=== PATIENT | female | born 1985 | race American Indian/Alaskan Native ===

== ENCOUNTER 2019-11-06 19:47 | Emergency (ER) | payer OTHER ==
--- NOTE | 2019-11-06 20:23 | Event Note ---
ED Screening Note ED Screening Note: SOB, lightheadedness, fatigue that began three days ago hx of anemia, never had transfusion no n/v/d no cough no fever no CP conjunctiva is very pale hx of heavy menstrual cycle, currently on cycle hypotensive, improved upon repeat This initial assessment/diagnostic orders/clinical plan/treatment(s) is/are subject to change based on patients health status, clinical progression and re- assessment by fellow clinical providers in the ED. Further treatment and workup at subsequent clinical providers discretion. Patient/guardian urged not to elope from the ED as their condition may be serious if not clinically assessed and managed. Initial orders include: labs 8:22 PM spoke with Yahir, charge nurse advised pts blood pressure and paleness, states she is looking for a room
[2019-11-06] MEDS ORDERED: MECLIZINE 25 MG TAB PO ONE (20:36)
[2019-11-06] MEDS ORDERED: SODIUM CHLORIDE 0.9% 1000 ML 1,000 ML IV ONE (20:36)
--- NOTE | 2019-11-06 20:38 | Emergency Department Report ---
HPI - General Chief Complaint: Dizziness Time Seen by Provider: 11/06/19 20:19 - HPI HPI: This is a 34-year-old female presents to the emergency department with a 3 to 4- day history of some shortness of breath and dizziness/vertigo. Patient says that the dizziness is both the sensation that the room is spinning, as well as feeling like she might pass out. She denies any headache, vision change, numbness or paresthesias or any other neurological deficits. The shortness of breath worsens when the patient is trying to sleep. She denies any fever, chest pain, cough, wheezing, back pain, lower extremity swelling. She has not taken anything for symptoms prior to presentation. She has a history of anemia for which she takes iron pills. She denies any tobacco or illicit drug use. No recent travel or sick contacts at home. No known exposure to anyone with Covid 19. ED Past Medical Hx - Past Medical History Previous Medical History?: Yes Additional medical history: Anemia - Surgical History Past Surgical History?: Yes Hx Cholecystectomy: Yes - Social History Smoking Status: Never Smoker Substance Use Type: None - Medications Home Medications: Home Medications Medication Instructions Recorded Confirmed Last Taken Type Ferrous Sulfate [Feosol] 325 mg PO QDAY #30 tablet 11/07/19 Unknown Rx Meclizine [Antivert] 25 mg PO TID PRN #15 tablet 11/07/19 Unknown Rx ED Review of Systems ROS: Stated complaint: SOB,DIZZY Other details as noted in HPI Comment: All other systems reviewed and negative Constitutional: denies: chills, fever Eyes: denies: eye pain, vision change ENT: denies: ear pain, throat pain Respiratory: shortness of breath. denies: cough, wheezing Cardiovascular: denies: chest pain, palpitations Gastrointestinal: denies: abdominal pain, vomiting Genitourinary: denies: dysuria, discharge Musculoskeletal: denies: back pain, arthralgia Skin: denies: rash, lesions Neurological: vertigo, other (dizziness). denies: headache Physical Exam - Physical Exam Vital Signs: Vital Signs 11/06/19 20:09 Temperature 98.6 F Pulse Rate 90 Respiratory 18 Rate Blood Pressure 88/50 O2 Sat by Pulse 100 Oximetry Physical Exam: GENERAL: The patient is well-developed well-nourished. HENT: Normocephalic. Atraumatic. Patient has moist mucous membranes. EYES: Extraocular motions are intact. No nystagmus. NECK: Supple. Trachea is midline. CHEST/LUNGS: Clear to auscultation. No tachypnea or accessory muscle use. There is no respiratory distress noted. HEART/CARDIOVASCULAR: Regular. There is no tachycardia. There is no murmur. ABDOMEN: Abdomen is soft, nontender. Patient has normal bowel sounds. SKIN: Skin is warm and dry. NEURO: The patient is awake, alert, and oriented. The patient is cooperative. The patient has no focal neurologic deficits. Normal speech. Cranial nerves II through XII grossly intact. No pronator drift. No dysmetria. MUSCULOSKELETAL: There is no tenderness or deformity. There is no limitation range of motion. There is no evidence of acute injury. ED Course Vital Signs 11/06/19 20:09 Temperature 98.6 F Pulse Rate 90 Respiratory 18 Rate Blood Pressure 88/50 O2 Sat by Pulse 100 Oximetry ED Medical Decision Making - Lab Data Result diagrams: 11/06/19 20:27 11/06/19 20:27 - EKG Data -: EKG Interpreted by Me EKG shows normal: sinus rhythm, axis, intervals, QRS complexes, ST-T waves Rate: normal - EKG Data When compared to previous EKG there are: previous EKG unavailable Interpretation: normal EKG - Radiology Data Radiology results: report reviewed, image reviewed interpreted by me: Chest x-ray does not show any acute process. There are no pleural effusions, obvious pneumonia and there is no pneumothorax. CTA CHEST WITH IV CONTRAST INDICATION: Shortness of breath. TECHNIQUE: Axial CT images were obtained through the chest after injection of 100 cc Omnipaque 350 IV contrast. 3 plane MIP reconstructions were produced. All CT scans at this location are performed using CT dose reduction for ALARA by means of automated exposure control. COMPARISON: None available. FINDINGS: PULMONARY ARTERIES: No pulmonary emboli. THORACIC AORTA: No acute abnormality. HEART: Normal. CORONARY ARTERIES: No significant calcification. PLEURA: No pleural effusion. No pneumothorax. LYMPH NODES: No significant adenopathy. LUNGS: The right upper lobe subpleural nodular parenchymal densities measuring 1.7 and 1.4 cm on series 2 image 24 and 33. ADDITIONAL FINDINGS: None. UPPER ABDOMEN: Indeterminate hypodense cystic lesion within the spleen measuring 2.9 cm. Pneumobilia. SKELETAL STRUCTURES: No significant osseous abnormality. IMPRESSION: 1. No CT evidence for pulmonary embolism. 2. 2 right upper lobe pleural-based small nodular opacities. Favor infection/inflammation versus less likely neoplasm given patient's young age. Short-term follow-up CT is recommended in 3 months to confirm resolution 3 indeterminate splenic lesion likely represents pseudocyst. - Medical Decision Making This patient presents to the emergency department with a complaint of some dizziness/vertigo and shortness of breath. On examination she does not have any focal, motor or sensory deficits and her cranial nerves are intact. Heart and lung sounds are normal to auscultation and the patient does not appear in any respiratory or acute distress. A chest x-ray was done that does not show any acute process. EKG did not show any signs of ST elevation NV or any significant dysrhythmia. Patient's labs show anemia with a hemoglobin of 8 and an elevated d-dimer level. Patient has a history of anemia and has been out of her iron supplement. Secondary to the elevated d-dimer level, the patient had a CT angiography of the chest that did not show any evidence for pulmonary embolism. However, incidentally, the patient was found to have 2 right upper lobe pleural-based nodules. I discussed this with the patient so that he can be followed by her primary care physician as she will need a follow-up scan or some type of imaging study in about 3 months. Patient was given 2 L of IV fluid resuscitation and a dose of Antivert. She was reevaluated multiple times over multiple hours and says she is feeling greatly improved. The dizziness and shortness of breath have both resolved. The patient was seen ambulatory throughout the emergency department and both appears and feels stable. For all these reasons patient appears safe for discharge home at this time. She has been given a prescription for Antivert and instructed to follow-up with her PCP. She will return to the ER with any worsening of her symptoms or any acute distress. Critical Care Time: No Critical care attestation.: If time is entered above; I have spent that time in minutes in the direct care of this critically ill patient, excluding procedure time. ED Disposition Clinical Impression: Vertigo, Shortness of breath, Pulmonary nodules Anemia Qualifiers: Anemia type: unspecified type Qualified Code(s): D64.9 - Anemia, unspecified Disposition: DC- TO HOME OR SELFCARE Is pt being admited?: No Condition: Stable Instructions: Vertigo (ED), Dyspnea (ED), Dizziness (ED), Pulmonary Nodules (ED) Additional Instructions: Please follow-up with your primary care physician in the next few days. Return to the emergency department with any worsening of your symptoms or any acute distress. I am setting you up for a lower extremity venous Doppler ultrasound to evaluate the bumps/lumps felt on your legs. If positive for blood clots, you will be redirected to the emergency department. If negative, proceed with outpatient follow-up with your primary care physician. Prescriptions: Meclizine [Antivert] 25 mg PO TID PRN #15 tablet PRN Reason: Vertigo Ferrous Sulfate [Feosol] 325 mg PO QDAY #30 tablet Referrals: PCP, Your [Other] - 2-3 Days Time of Disposition: 02:16
[2019-11-06 20:51] LABS: Basophils % (Auto) 0.2 % (0.0-1.8); Eosinophils % (Auto) 0.6 % (0.0-4.3); Hematocrit 26.7 % (30.3-42.9); Lymphocytes # (Auto) 1.1 K/mm3 (1.2-5.4); Lymphocytes % (Auto) 19.8 % (13.4-35.0); Mean Corpuscular HGB Conc 30 % (30-34); Mean Corpuscular Volume 67 fl (79-97); Monocytes # (Auto) 0.8 K/mm3 (0.0-0.8); Monocytes % (Auto) 14.4 % (0.0-7.3); Platelet Count 446 K/mm3 (140-440); Red Blood Count 4.01 M/mm3 (3.65-5.03); Red Cell Distribution Width 19.2 % (13.2-15.2)
[2019-11-06 21:07] LABS: INR 1.03 (0.87-1.13)
[2019-11-06 21:26] LABS: Alanine Aminotransferase 8 units/L (7-56); Albumin 3.8 g/dL (3.9-5); BUN/Creatinine Ratio 12; Blood Urea Nitrogen 7 mg/dL (7-17); Calcium 9.5 mg/dL (8.4-10.2); Hemolysis Index 0
--- NOTE | 2019-11-06 22:03 | XRay Report ---
CHEST 2 VIEWS INDICATION / CLINICAL INFORMATION: SOB. COMPARISON: Prior chest radiograph 12/12/2009 FINDINGS: SUPPORT DEVICES: None. HEART / MEDIASTINUM: No significant abnormality. LUNGS / PLEURA: No significant pulmonary or pleural abnormality. No pneumothorax. ADDITIONAL FINDINGS: No significant additional findings. IMPRESSION: 1. No acute findings. No interval change Signer Name: Leana Allen MD Signed: 11/06/2019 9:58 PM Workstation Name: [id number]
[2019-11-07] MEDS ORDERED: SODIUM CHLORIDE 0.9% 1000 ML 1,000 ML IV ONE (00:03)
--- NOTE | 2019-11-07 00:51 | Cat Scan Report ---
CTA CHEST WITH IV CONTRAST INDICATION: Shortness of breath. TECHNIQUE: Axial CT images were obtained through the chest after injection of 100 cc Omnipaque 350 IV contrast. 3 plane MIP reconstructions were produced. All CT scans at this location are performed using CT dose reduction for ALARA by means of automated exposure control. COMPARISON: None available. FINDINGS: PULMONARY ARTERIES: No pulmonary emboli. THORACIC AORTA: No acute abnormality. HEART: Normal. CORONARY ARTERIES: No significant calcification. PLEURA: No pleural effusion. No pneumothorax. LYMPH NODES: No significant adenopathy. LUNGS: The right upper lobe subpleural nodular parenchymal densities measuring 1.7 and 1.4 cm on seri es 2 image 24 and 33. ADDITIONAL FINDINGS: None. UPPER ABDOMEN: Indeterminate hypodense cystic lesion within the spleen measuring 2.9 cm. Pneumobilia. SKELETAL STRUCTURES: No significant osseous abnormality. IMPRESSION: 1. No CT evidence for pulmonary embolism. 2. 2 right upper lobe pleural-based small nodular opacities. Favor infection/inflammation versus less likely neoplasm given patient's young age. Short-term follow-up CT is recommended in 3 months to con firm resolution 3 indeterminate splenic lesion likely represents pseudocyst. Signer Name: Juanpablo Field MD Signed: 11/07/2019 12:46 AM Workstation Name: [id number]
[2019-11-07 02:09] VITALS: BP 98/55
== END 2019-11-07 02:48 | disposition home or self-care (01) ==
LOC: ED 19:47
DX: R42 Dizziness and giddiness (principal); R06.02 Shortness of breath; R91.1 Solitary pulmonary nodule; D64.9 Anemia, unspecified; Z90.49 Acquired absence of other specified parts of digestive tract; Z79.899 Other long term (current) drug therapy
CPT/HCPCS: 36415; 71046; 71275; 80053; 83735; 84443; 84484; 84703; 85025; 85379; 85610; 86850; 86900; 86901; 93005; 96360; 96361; 99285; J7030; Q9967